=== PATIENT | female | born 2000 | race Caucasian/White ===

== ENCOUNTER 2019-11-01 08:15 | Outpatient (CLI) | payer OTHER, SELFPAY ==
[2019-11-01 08:52] LABS: Basophils Percent Auto 0.2 % (0.2-1.2); Eosinophils Absolute Auto 0.1 K/mm3 (0-0.3); Hematocrit 38.7 % (37.0-47.0); Immature Granulocyte Absolute 0.06 K/mm3 (0.00-0.031); Immature Granulocyte Percent A 0.7 % (0-0.5); Lymphocytes Absolute Auto 2.17 K/mm3 (0.9-3.2); Lymphocytes Percent Auto 24.2 % (18.3-44.2); Mean Corpuscular Hemoglobin 25.5 pg (26-34); Mean Corpuscular Volume 82.2 fl (80-100); Mean Platelet Volume 10.4 fl (7.4-10.4); Monocytes Absolute Auto 0.5 K/mm3 (0.1-0.6); Monocytes Percent Auto 5.5 % (2.6-8.5); Neutrophils Absolute Auto 6.1 K/mm3 (1.3-6.7); Neutrophils Percent Auto 68.4 % (45.5-73.1); Platelet Count Result 309 k/mm3 (150-375); Red Blood Count 4.71 M/mm3 (4.2-5.4)
[2019-11-01 08:59] LABS: Hemoglobin A1C 6.2 % (<5.7)
[2019-11-01 09:03] LABS: Alanine Aminotransferase 21 U/L (4-35); Albumin Level 3.9 g/dL (3.5-5.1); Alkaline Phosphatase 125 U/L (38-126); Aspartate Amino Transferase 21 U/L (14-36); Bilirubin,Total 0.3 mg/dL (0.2-1.3); Blood Urea Nitrogen 8 mg/dL (7-17); Calcium 9.3 mg/dL (8.4-10.2); Carbon Dioxide 24 mmol/L (22-30); Chloride 107 mmol/L (98-107); Cholesterol 156 mg/dL (0-200); Estimated Glomerular Filt Rate > 60; Glucose 126 mg/dL (65-105); HDL Direct 49 mg/dL; Potassium 3.9 mmol/L (3.4-5.0); Sodium 139 mmol/L (137-145); Triglycerides 198 mg/dL (<150)
[2019-11-01 09:11] LABS: Lithium 0.9 mmol/L (0.6-1.2)
[2019-11-01 09:14] LABS: LDL Cholesterol Direct 78 mg/dL
== END 2019-11-01 08:16 | disposition home or self-care (01) ==
PROVIDERS: PCP Family Medicine
DX: F29 Unspecified psychosis not due to a substance or known physiological condition (principal)
CPT/HCPCS: 36415; 80053; 80061; 80178; 82306; 83036; 85025

== ENCOUNTER 2020-08-10 12:33 | Emergency (ER) | payer OTHER, SELFPAY ==
--- NOTE | ~2020-08-10 | XR_ITS ---
EXAMINATION: XR chest 2V DATE: 08/10/2020 12:56 INDICATION: Chest pain. Shortness of breath. TECHNIQUE: Frontal and lateral views of the chest were obtained. COMPARISON: Chest 2 views 09/18/2005 FINDINGS: The chest demonstrates clear lungs without pneumonia, pleural effusion, or pneumothorax. Th e heart size is normal. IMPRESSION: 1. No acute cardiopulmonary disease. Reviewed, dictated and finalized at location A. [employer]
--- NOTE | 2020-08-10 12:42 | ECG_ITS ---
Measurements Intervals [place] Rate: 82 P: 22 ME: 129 QRS: 49 QRSD: 95 T: 38 QT: 363 QTc: 426 Interpretive Statements SINUS RHYTHM NORMAL ECG Electronically Signed On 08-10-2020 12:52:58 CPAS by Wilbert Verde D.O.
[2020-08-10 12:43] VITALS: BP 129/71; PULSE 87; RESP 20; TEMP 36.6; O2SAT 100
[2020-08-10] MEDS: ASPIRIN 81 MG CHEWABLE TABLET 324 MG PO (13:03)
--- NOTE | 2020-08-10 13:10 | ED.CHESTPAIN ---
HPI - Chest Pain General Chief Complaint: Chest Pain Stated Complaint: severe chest pains since last night Time Seen by Provider: 08/10/20 12:43 Source: patient Mode of arrival: ambulatory Limitations: no limitations History of Present Illness HPI narrative: This is a 19-year-old female that presents the emergency department for chest pain since last night. Reports the pain is sharp and substernal. Has been constant since onset. Associated with shortness of breath. Denies fever, cough, or lower extremity edema. Related Data Allergies Allergy/AdvReac Type Severity Reaction Status Date / Time ziprasidone Allergy Unknown FACIAL TICS Verified 08/10/20 12:48 zolpidem AdvReac Unknown UNKNOWN Verified 08/10/20 12:48 REACTION BENZTROPINE MESYLATE Allergy Unknown MAKES HER Uncoded 08/10/20 12:48 LOOPY Review of Systems Review of Systems: Narrative: CONSTITUTIONAL: Denies fever CARDIOVASCULAR: Reports chest pain. Denies edema. RESPIRATORY: Reports dyspnea. Denies dyspnea PSYCHIATRIC: Reports anxiety All systems reviewed & are unremarkable except as noted in HPI and below [facility] Past Medical History Medical History (Updated 08/10/20 @ 16:30 by Kirstin Kahn PA-C) Anxiety Depression History of diabetes mellitus Surgical History Surgical History (Updated 07/16/19 @ 19:42 by Sabino Juan PA-C) Hx of tympanostomy tubes Social History Social History (Updated 07/16/19 @ 19:43 by Sabino Juan PA-C) Smoking status: Never smoker Gender identity (if verbalized by the patient): Female Exam Narrative: Exam Narrative: GENERAL: Well-appearing, obese, and in no acute distress. HEAD: Normocephalic, atraumatic. EYES: EOMI. ENT: Nares clear, no rhinorrhea or epistaxis. Mucous membranes moist. Oropharynx without tonsillar hypertrophy exudate or other lesions. Bilateral TMs pearly montague non-bulging NECK: Supple. No adenopathy or masses. CHEST: Clear to auscultation. No respiratory distress. No wheezes rales or rhonchi. Tender to palpation over the sternum HEART: Regular rate and rhythm. No murmur heard. Normal peripheral pulses. EXTREMITIES: Normal range of motion. No edema. SKIN: Warm, dry, no rash. NEURO: No focal deficits. Alert and oriented x3. CN II-XII grossly intact PSYCH: Normal mood and affect Course Vital Signs Vital signs: Vital Signs Temperature 97.9 F 08/10/20 12:43 Pulse Rate 87 08/10/20 12:43 Respiratory Rate 20 08/10/20 12:43 Blood Pressure 129/71 08/10/20 12:43 Pulse Oximetry 100 08/10/20 12:43 Temperature 97.9 F 08/10/20 12:43 Pulse Rate 79 08/10/20 14:01 Respiratory Rate 20 08/10/20 12:43 Blood Pressure 116/73 08/10/20 14:01 Pulse Oximetry 100 08/10/20 12:43 MDM - Chest Pain MDM Narrative Medical decision making narrative: Patient presents emergency department for chest pain since last night. Atypical in nature. Patient does have some tenderness to palpation over the chest wall. Also has history of anxiety and symptoms do seem consistent with anxiety. She is afebrile and nontoxic-appearing. Vitals are normal. CBC and metabolic panel without concerning findings. BNP is not elevated. Baseline and 3-hour troponin are negative. D-dimer is negative. EKG is normal. Chest x-ray is without acute findings. Bedside test is negative. Reports improvement in symptoms with IV fluids, Tylenol, Toradol. Patient and family were updated on case findings. She is stable and felt appropriate for further outpatient evaluation. She was given warnings to return to the ER Lab Data Attestation: I reviewed the patient's lab results. Result diagrams: 08/10/20 13:03 08/10/20 13:03 Labs: Lab Results 08/10/20 08/10/20 08/10/20 Range/Units 13:03 13:03 13:03 WBC 9.0 (4.5-10.0) K/mm3 RBC 4.59 (4.2-5.4) M/mm3 Hgb 12.3 (12.0-15.0) g/dL Hct 37.6 (37.0-47.0) % MCV 81.9 (80-100) fl MCH 26.8
[2020-08-10 13:11] LABS: Basophils Percent Auto 0.3 % (0.2-1.2); Eosinophils Absolute Auto 0.1 K/mm3 (0-0.3); Eosinophils Percent Auto 0.7 % (0-4.4); Hematocrit 37.6 % (37.0-47.0); Hemoglobin 12.3 g/dL (12.0-15.0); Immature Granulocyte Absolute 0.03 K/mm3 (0.00-0.031); Immature Granulocyte Percent A 0.3 % (0-0.5); Lymphocytes Absolute Auto 2.39 K/mm3 (0.9-3.2); Lymphocytes Percent Auto 26.4 % (18.3-44.2); Mean Corpuscular HGB Conc 32.7 g/dl (32-36); Mean Corpuscular Hemoglobin 26.8 pg (26-34); Mean Corpuscular Volume 81.9 fl (80-100); Mean Platelet Volume 10.4 fl (7.4-10.4); Monocytes Absolute Auto 0.5 K/mm3 (0.1-0.6); Monocytes Percent Auto 5.2 % (2.6-8.5); Neutrophils Absolute Auto 6.1 K/mm3 (1.3-6.7); Neutrophils Percent Auto 67.1 % (45.5-73.1); Platelet Count Result 282 k/mm3 (150-375); Red Blood Count 4.59 M/mm3 (4.2-5.4); Red Cell Distribution Width 14.1 % (11.5-14.5)
[2020-08-10 13:22] LABS: Partial Thromboplastin Time 32.6 SECONDS (22.3-36.8); Prothrombin Time 13.8 Seconds (11.1-14.7)
[2020-08-10 13:24] LABS: Anion Gap 7 mmol/L (8-16); Blood Urea Nitrogen 14 mg/dL (7-17); Calcium 9.2 mg/dL (8.4-10.2); Carbon Dioxide 21 mmol/L (22-30); Chloride 111 mmol/L (98-107); Estimated CRCL calculation 127 ml/min; Estimated Glomerular Filt Rate > 60; Glucose 118 mg/dL (65-105); Potassium 3.7 mmol/L (3.4-5.0); Sodium 139 mmol/L (137-145)
[2020-08-10] MEDS: FAMOTIDINE 20 MG/2 ML VIAL IV PUSH (13:31)
[2020-08-10] MEDS: KETOROLAC 15 MG/ML VIAL (*BKC) IV PUSH (13:31)
[2020-08-10 13:36] LABS: Troponin I < 0.012 ng/mL (0.000-0.034)
[2020-08-10 13:41] LABS: NT Pro B Type Natriuretic Pept < 11 PG/ML (5-100)
[2020-08-10 13:44] LABS: D Dimer 0.27 ug/mL (<0.48)
[2020-08-10 14:00] VITALS: BP 107/68; BP 117/79; PULSE 71; PULSE 78
[2020-08-10 14:01] VITALS: BP 116/73; PULSE 79
[2020-08-10] MEDS: SODIUM CHLORIDE 0.9% IV 1,000 ML 999 ML IV CONT (14:32)
[2020-08-10 15:00] VITALS: BP 100/71; PULSE 70; RESP 16; O2SAT 100
[2020-08-10 16:21] LABS: Troponin I < 0.012 ng/mL (0.000-0.034)
[2020-08-10 16:35] VITALS: BP 105/66; PULSE 75; RESP 16; O2SAT 100
== END 2020-08-10 16:35 | disposition home or self-care (01) ==
PROVIDERS: Emergency Medicine; Physician Assistant; Emergency Provider Emergency Medicine; PCP Nurse Practitioner Family
DX: R07.89 Other chest pain (principal); E11.9 Type 2 diabetes mellitus without complications
CPT/HCPCS: 36415; 71046; 80048; 81025; 83880; 84484; 85025; 85380; 85610; 85730; 93005; 96361; 96374; 96375; 99284; A9270; J0131; J1885; J7030

== ENCOUNTER 2020-08-10 20:57 | Emergency (ER) | payer OTHER, SELFPAY ==
[2020-08-10 20:51] VITALS: BP 135/99; PULSE 75; RESP 17; TEMP 36.2; O2SAT 100
[2020-08-10 21:20] VITALS: BP 119/78; PULSE 77; RESP 16; O2SAT 98
--- NOTE | 2020-08-10 21:20 | ED.GENADULT ---
HPI - General Adult General Chief complaint: Unspecified Stated complaint: sob with inspiration Time Seen by Provider: 08/10/20 21:05 History of Present Illness HPI narrative: Sharp substernal chest pain since last night. Worse with taking a deep breath. 8/10 in severity. Seen here earlier today and had thorough work-up which was all negative. She was given GI cocktail and toradol, which she says did not change the pain at all. No SOB, fever, chills, cough. Related Data Home Medications Medication Instructions Recorded Confirmed bupropion HCl PO 08/10/20 08/10/20 clozapine mg 08/10/20 lithium carbonate mg PO 08/10/20 lithium carbonate mg PO 08/10/20 metformin mg PO 08/10/20 Allergies Allergy/AdvReac Type Severity Reaction Status Date / Time ziprasidone Allergy Unknown FACIAL TICS Verified 08/10/20 20:58 zolpidem AdvReac Unknown UNKNOWN Verified 08/10/20 20:58 REACTION BENZTROPINE MESYLATE Allergy Unknown MAKES HER Uncoded 08/10/20 20:58 LOOPY Review of Systems Review of Systems: All systems reviewed & are unremarkable except as noted in HPI and below Constitutional: Constitutional: Denies chills and Denies fever(s) Cardiovascular: Cardiovascular: Reports chest pain Respiratory: Respiratory: Denies chest congestion, Denies cough and Reports pain on inspiration Gastrointestinal: Gastrointestinal: Denies abdominal pain and Denies nausea Musculoskeletal: Musculoskeletal: Denies myalgias PMFSH Past Medical History Medical History Anxiety Depression History of diabetes mellitus Surgical History Surgical History Hx of tympanostomy tubes Social History Social History Smoking status: Never smoker Gender identity (if verbalized by the patient): Female Exam Const: General: healthy appearing, no acute distress and alert Orientation/consciousness: patient oriented x3 HENMT: Head: normal to inspection Neck: Neck: normal visual inspection and no lymphadenopathy Chest: Chest palpation & inspection: tenderness costochondral junction Resp: Effort & Inspection: normal respiratory effort Auscultation: clear to auscultation bilaterally, no rales, no rhonchi and no wheezes Cardio: Jugular venous distension: no JVD Rate: regular rate Rhythm: regular rhythm Heart sounds: no murmurs GI: Inspection: non-distended GI Palp: Yes Soft to palpation and No Tenderness to palpation present (GI) Skin: General skin exam: normal color Neuro: General: patient oriented x3 and moves all extremities Speech: normal speech Extrem: General: no edema Psych: Appearance: well kempt Affect: Anxious affect present Course Vital Signs Vital signs: Vital Signs Temperature 36.2 C L 08/10/20 20:51 Pulse Rate 75 08/10/20 20:51 Respiratory Rate 17 08/10/20 20:51 Blood Pressure 135/99 H 08/10/20 20:51 Pulse Oximetry 100 08/10/20 20:51 Temperature 36.2 C L 08/10/20 20:51 Pulse Rate 79 08/10/20 22:45 Respiratory Rate 14 08/10/20 22:45 Blood Pressure 106/73 08/10/20 22:45 Pulse Oximetry 98 08/10/20 22:45 Medical Decision Making MDM Narrative Medical decision making narrative: Entire work-up from earlier today was negative, and I do not believe that there would be any benefit to repeating. Vitals normal. Exam benign. She appears very axious. I will try ativan to see if she responds. Medical Records Medical records reviewed: Yes I reviewed the patient's medical records. Vital Signs Vital Signs: Vital Signs Temperature 36.2 C L 08/10/20 20:51 Pulse Rate 75 08/10/20 20:51 Respiratory Rate 17 08/10/20 20:51 Blood Pressure 135/99 H 08/10/20 20:51 Pulse Oximetry 100 08/10/20 20:51 Temperature 36.2 C L 08/10/20 20:51 Pulse Rate 79 08/10/20 22:45 Respiratory Rate 14 08/10/20 22:
[2020-08-10] MEDS: LORazepam (*CRX) 1 MG TABLET PO (21:37)
[2020-08-10 22:45] VITALS: BP 106/73; PULSE 79; RESP 14; O2SAT 98
== END 2020-08-10 22:45 | disposition home or self-care (01) ==
PROVIDERS: Emergency Provider Emergency Medicine; PCP Nurse Practitioner Family
DX: R07.89 Other chest pain (principal); F41.9 Anxiety disorder, unspecified; F32.9 Major depressive disorder, single episode, unspecified; E11.9 Type 2 diabetes mellitus without complications; Z79.84 Long term (current) use of oral hypoglycemic drugs
CPT/HCPCS: 99283; A9270

== ENCOUNTER 2020-10-20 17:26 | Emergency (ER) | payer OTHER, SELFPAY ==
[2020-10-20 17:41] VITALS: BP 137/87; PULSE 102; RESP 18; TEMP 36.4; O2SAT 100
--- NOTE | 2020-10-20 17:44 | ED.GENADULT ---
HPI - General Adult General Chief complaint: Back Pain/Injury Stated complaint: back injury Time Seen by Provider: 10/20/20 17:42 Source: patient and RN notes reviewed Mode of arrival: ambulatory Limitations: no limitations History of Present Illness HPI narrative: 20-year-old female presents with complaints of left back pain for 1 day. Shraddha reports she slipped down a ramp (at her home) landed on back and buttocks on 10/19/2020, causing injury to left side of her back and buttock, pain continue throughout the night and today. Excedrin Migraine last 10/19/20 approximately 3 PM with little to no relief. Denies radiating pain, numbness, or tingling. Denies fever. No upper or lower extremity pain or weakness. Exacerbating factors consist of prolong standing and bending. Denies hitting head, loss of consciousness, dizziness, syncopal episodes, or seizure activity. Denies nausea, vomiting, or abdominal pain. Tolerating po intake well. Denies problems with urinating or having a bowel movement, LBM today at 13:00 per patient and normal. No flank pain or hematuria or dysuria. The patient reports she have not been diagnosed with COVID-19. The patient reports she is not waiting for the results of a COVID-19 lab test. The patient reports she do not have chills, weakness, or fatigue. The patient reports she do not have a new or worsening cough or shortness of breath. Denies chest pain. The patient reports she do not have any rhinorrhea, congestion, sore throat, loss of taste or smell, or diarrhea. Denies recent traveling. Denies concerns for COVID-19 or exposures been home with limited outdoor exposure except for essential household needs, work, and return home. At this time, patient is not suspected of having COVID-19. Some parts of this dictation were generated by voice recognition software and may contain typographical and/or grammatical inaccuracies. Related Data Home Medications Medication Instructions Recorded Confirmed clozapine mg 08/10/20 lithium carbonate mg PO 08/10/20 lithium carbonate mg PO 08/10/20 metformin mg PO 08/10/20 Allergies Allergy/AdvReac Type Severity Reaction Status Date / Time ziprasidone Allergy Unknown FACIAL TICS Verified 08/10/20 20:58 zolpidem AdvReac Unknown UNKNOWN Verified 08/10/20 20:58 REACTION BENZTROPINE MESYLATE Allergy Unknown MAKES HER Uncoded 08/10/20 20:58 LOOPY Review of Systems Review of Systems: Narrative: CONSTITUTIONAL: Denies fever, chills, sweats. EYES: Denies visual changes, redness, discharge. ENT: Denies rhinorrhea, congestion, sore throat, otalgia. CARDIOVASCULAR: Denies chest pain, palpitations, edema. RESPIRATORY: Denies dyspnea, wheezing, cough. GASTROINTESTINAL: Denies abdominal pain, nausea, vomiting, diarrhea. GENITOURINARY: Denies dysuria, hematuria, abnormal discharge. SKIN: Denies rash or itching. MUSCULOSKELETAL: Complains of left back pain. Denies joint pain or myalgia. NEUROLOGIC: Denies numbness or focal weakness. PSYCHIATRIC: Denies anxiety or depression. All systems reviewed & are unremarkable except as noted in HPI and below. [facility] Past Medical History Medical History (Updated 10/20/20 @ 18:09 by JENNY Hurst) ADHD (attention deficit hyperactivity disorder) Anxiety Depression History of diabetes mellitus Psychiatric disorder Surgical History Surgical History (Updated 10/20/20 @ 18:07 by JENNY Hurst) History of adenoidectomy History of tonsillectomy Hx of tympanostomy tubes Family History Family History (Updated 10/20/20 @ 18:06 by JENNY Hurst) Other Adopted Unknown family medical history Social History Social History (Updated 10/20/20 @ 18:05 by JENNY Hurst) Smoking status: Current every day smoker Tobacco type: e-cigarettes/vaping Second hand tobacco smoke exposure: Yes (grandmother) Additional smoking assessment comments: Shraddha reports smoking cigar
[2020-10-20 18:04] VITALS: PULSE 92
== END 2020-10-20 18:04 | disposition home or self-care (01) ==
PROVIDERS: Emergency Provider Nurse Practitioner Family; PCP Nurse Practitioner Family
DX: S33.5XXA Sprain of ligaments of lumbar spine, initial encounter (principal); W10.2XXA Fall (on)(from) incline, initial encounter; F17.200 Nicotine dependence, unspecified, uncomplicated; F41.9 Anxiety disorder, unspecified; F32.9 Major depressive disorder, single episode, unspecified
CPT/HCPCS: 99213; G0463

== ENCOUNTER 2021-01-01 11:50 | Outpatient (CLI) | payer OTHER, SELFPAY ==
--- NOTE | ~2021-01-01 | US_ITS ---
EXAMINATION: US pelvic complete DATE: 01/01/2021 15:36 INDICATION: Polycystic ovary disease Comparison:No prior studies for comparison. TECHNIQUE: Multiple transabdominal sonographic images of the pelvis performed. Patient refused transv aginal examination. FINDINGS: The uterus measures 8.9 x 3 x 4.8 cm. The endometrial complex measures 3 mm. The right ovary measures 2.9 x 1.4 x 1.9 cm and the left ovary measures 3.4 x 2.4 x 2.9 cm. There is a 2.3 cm left ovarian cyst.. Normal doppler signal in both ovaries. There is no free fluid in the pelvis. There are no abnormal masses seen on either side. IMPRESSION: 1. Left ovarian cyst measuring 2.3 cm. Reviewed, dictated and finalized at location B.
== END 2021-01-01 11:51 | disposition home or self-care (01) ==
PROVIDERS: PCP Nurse Practitioner Family; Visit Provider Family Medicine
DX: E28.2 Polycystic ovarian syndrome (principal)
CPT/HCPCS: 76856

== ENCOUNTER → 2021-04-27 02:35 | Outpatient (CLI) | payer OTHER, SELFPAY ==
[2021-04-27 20:12] LABS: SARS-CoV-2 RNA PCR Negative
== END ==
PROVIDERS: PCP Family Medicine; Visit Provider Family Medicine
DX: R50.9 Fever, unspecified (principal); Z20.822 Contact with and (suspected) exposure to COVID-19
CPT/HCPCS: C9803; U0003; U0005

== ENCOUNTER 2021-07-30 09:05 | Emergency (ER) | payer OTHER, SELFPAY ==
[2021-07-30 09:09] VITALS: BP 142/84; PULSE 96; RESP 22; O2SAT 98
--- NOTE | 2021-07-30 09:30 | PC.NURSE ---
Pt tells this nurse that she told her friend the other day that she wanted to jump off of a bridge and told me that she has had past attempt of suicide, states she took a bottle of pills. I asked the patient if she is having more thoughts of suicide because she has been off of her medications. she states yes but i still have thoughts when i am on my medications
--- NOTE | 2021-07-30 09:52 | PC.NURSE ---
Pt told that she will be under suicide watch since she scored high risk on the columbia scale. Pt becomes panicked and states Im not suicidal now, i was the other day, im not now. This RN explained that she scored high risk on the scale and we have to have her evaluated because of that. Pt asks if she can call her mom before I took her phone. Pt calls mom and explains what is going on. This RN can hear mother on the phone telling patient that we can't hold her here and that she needs to just leave. I tell her that she can't leave at this time. Mother asks to talk to me. Pt mother on the phone tells me You can't hold her against her will, shes not suicidal, you can safety plan her out i stated thats she scored high risk and that we have to keep her until she is evaluated. She states I know how the scale works, my does the scales so i understand but my daughter shouldn't have came there alone. she is mentally retarded, and is not all there, shes not suicidal. I stated that pt will be medically cleared and that she will be evaluated by crisis and they along with the doctor will determine the next step. She states well my is the one that will be evaluating her, shes on today so ill be up to get my daughter soon Pt changed into green scrubs, all belongings locked up at this time.
[2021-07-30 10:33] LABS: Basophils Percent Auto 0.2 % (0.2-1.2); Eosinophils Absolute Auto 0.1 K/mm3 (0-0.3); Eosinophils Percent Auto 0.5 % (0-4.4); Hematocrit 39.1 % (37.0-47.0); Hemoglobin 12.8 g/dL (12.0-15.0); Immature Granulocyte Absolute 0.03 K/mm3 (0.00-0.031); Immature Granulocyte Percent A 0.3 % (0-0.5); Lymphocytes Absolute Auto 1.74 K/mm3 (0.9-3.2); Lymphocytes Percent Auto 18.9 % (18.3-44.2); Mean Corpuscular HGB Conc 32.7 g/dl (32-36); Mean Corpuscular Hemoglobin 26.6 pg (26-34); Mean Corpuscular Volume 81.3 fl (80-100); Mean Platelet Volume 10.2 fl (7.4-10.4); Monocytes Absolute Auto 0.5 K/mm3 (0.1-0.6); Monocytes Percent Auto 4.9 % (2.6-8.5); Neutrophils Absolute Auto 6.9 K/mm3 (1.3-6.7); Neutrophils Percent Auto 75.2 % (45.5-73.1); Platelet Count Result 304 k/mm3 (150-375); Red Blood Count 4.81 M/mm3 (4.2-5.4); White Blood Count 9.2 K/mm3 (4.5-10.0)
[2021-07-30 10:41] LABS: Amphetamine Screen Urine Negative (Negative); Barbiturate Screen Urine Negative (Negative); Benzodiazepines Screen Urine Negative (Negative); Cannabinoid Screen Urine Negative (Negative); Cocaine Screen Urine Negative (Negative); Methadone Screen Urine Negative (Negative); Opiate Screen Urine Negative (Negative); Phencyclidine Screen Urine Negative (Negative)
[2021-07-30 10:47] LABS: Add Urine Microscopic? YES; Appearance Urine Cloudy (Clear); Bilirubin Urine Negative (Negative); Blood Urine 3+ (Negative); Color Urine Yellow (Yellow); Glucose Urine UA Negative (Negative); Ketones Urine Negative (Negative); Leukocyte Esterase Ur Trace LEU/UL (Negative); Mucus Urine Rare /lpf; Nitrate Urine Negative (Negative); Protein Urine Negative (Negative); Specific Grav Ur 1.008 (1.001-1.035); Squamous Epithelial Cell Urine Moderate /hpf (Few); Urobilinogen Urine Negative mg/dL (<2.0)
[2021-07-30 10:50] LABS: Acetaminophen < 10 ug/mL (10-30); Ethanol < 10 mg/dL (<10); Salicylate 1.5 mg/dL (2-20)
[2021-07-30 10:52] LABS: Alanine Aminotransferase 20 U/L (4-35); Albumin Level 4.3 g/dL (3.5-5.1); Alkaline Phosphatase 127 U/L (38-126); Anion Gap 10 mmol/L (8-16); Aspartate Amino Transferase 25 U/L (14-36); Bilirubin,Total 0.3 mg/dL (0.2-1.3); Blood Urea Nitrogen 9 mg/dL (7-17); Calcium 9.8 mg/dL (8.4-10.2); Carbon Dioxide 21 mmol/L (22-30); Chloride 110 mmol/L (98-107); Estimated Glomerular Filt Rate > 60; Glucose 135 mg/dL (65-110); Potassium 3.7 mmol/L (3.4-5.0); Sodium 141 mmol/L (137-145)
[2021-07-30 11:01] LABS: Lithium 1.5 mmol/L (0.6-1.2)
--- NOTE | 2021-07-30 11:16 | ED.GENADULT ---
HPI - General Adult General Chief complaint: Psychiatric Symptoms Stated complaint: blurred vision, withdrawals Time Seen by Provider: 07/30/21 09:23 History of Present Illness HPI narrative: Patient is a 20-year-old female with history of psychosis, depression, anxiety presented with chief complaint of withdrawal symptoms. Patient reports that she has been out of her closet pain for the past 5 days and is having withdrawal symptoms. She reports the symptoms include shaking. She denies any nausea and vomiting, diaphoresis.patient psychiatrist is Dr. kayla kam. Patient states that she is supposed to have her lab work done prior to medication refill so since she did not have the blood work done the pharmacy did not give the refill. Patient states that she has still been taking her lithium twice a day as directed. Patient denies any suicidal or homicidal ideation.She denies any delusions or hallucinations. Related Data Home Medications Medication Instructions Recorded Confirmed clozapine 100 mg 08/10/20 lithium carbonate mg PO 08/10/20 lithium carbonate mg PO 08/10/20 metformin mg PO 08/10/20 Allergies Allergy/AdvReac Type Severity Reaction Status Date / Time ziprasidone Allergy Unknown FACIAL TICS Verified 07/30/21 09:21 zolpidem AdvReac Unknown UNKNOWN Verified 07/30/21 09:21 REACTION BENZTROPINE MESYLATE Allergy Unknown MAKES HER Uncoded 07/30/21 09:21 LOOPY Review of Systems Review of Systems: CONSTITUTIONAL: Denies fever, chills, or sweats. EYES: Denies visual changes, redness, or discharge. ENT: Denies rhinorrhea, congestion, sore throat, or otalgia. CARDIOVASCULAR: Denies chest pain, palpitations, or edema. RESPIRATORY: Denies cough or dyspnea. GASTROINTESTINAL: Denies abdominal pain, nausea, vomiting, or diarrhea. GENITOURINARY: Denies dysuria or hematuria. SKIN: Denies rash or itching. MUSCULOSKELETAL: Denies back pain, joint pain, or myalgia. NEUROLOGIC: Denies headache, numbness, dizziness, or weakness. PSYCHIATRIC: Reports anxiety or depression. [facility] Past Medical History Medical History (Updated 07/30/21 @ 15:25 by Danita Hussein PA-C) ADHD (attention deficit hyperactivity disorder) Anxiety Depression History of diabetes mellitus Psychiatric disorder Surgical History Surgical History (Updated 10/20/20 @ 18:07 by JENNY Hurst) History of adenoidectomy History of tonsillectomy Hx of tympanostomy tubes Family History Family History (Updated 10/20/20 @ 18:06 by JENNY Hurst) Other Adopted Unknown family medical history Social History Social History (Updated 10/20/20 @ 18:05 by JENNY Hurst) Smoking status: Current every day smoker Tobacco type: e-cigarettes/vaping Second hand tobacco smoke exposure: Yes (grandmother) Additional smoking assessment comments: Shraddha reports smoking cigarettes intermittently prior to Alcohol intake: former Alcohol use details: Had alcohol once when she was 19 Substance use: never Substance use type: does not use Gender identity (if verbalized by the patient): Female Exam Narrative: GENERAL: Well-appearing, well-nourished, and in no acute distress. Not diaphoretic. No tremors. Patient has no gagging or vomiting. HEAD: Normocephalic, atraumatic. CHEST: Clear to auscultation. No respiratory distress. No tachypnea. EXTREMITIES: Normal range of motion. No edema. SKIN: Warm, dry, no rash. NEURO: No focal deficits. Alert and oriented x3. Smiling and talking without any signs of discomfort or distress. PSYCH: Normal mood and affect. Course Vital Signs Vital signs: Vital Signs Pulse Rate 96 07/30/21 09:09 Respiratory Rate 22 H 07/30/21 09:09 Blood Pressure 142/84 H 07/30/21 09:09 Pulse Oximetry 98 07/30/21 09:09 Pulse Rate 94 07/30/21 13:54 Respiratory Rate 20 07/30/21 13:54 Blood Pressure 138/86 07/30/21 13:54 Pulse Oximetry 99 1
[2021-07-30 11:20] LABS: EDCOVIDSCREEN Negative (Negative)
[2021-07-30 13:54] VITALS: BP 138/86; PULSE 94; RESP 20; O2SAT 99
[2021-08-03 12:58] LABS: Clozapine 139 mcg/L; Norclozapine 193 mcg/L (25-400)
== END 2021-07-30 15:59 | disposition home or self-care (01) ==
PROVIDERS: Physician Assistant; Emergency Provider Emergency Medicine; PCP Family Medicine
DX: F32.A Depression, unspecified (principal); F41.9 Anxiety disorder, unspecified; Z91.14 Patient's other noncompliance with medication regimen; Z20.822 Contact with and (suspected) exposure to COVID-19; F90.9 Attention-deficit hyperactivity disorder, unspecified type; E11.9 Type 2 diabetes mellitus without complications; Z79.84 Long term (current) use of oral hypoglycemic drugs; F17.290 Nicotine dependence, other tobacco product, uncomplicated
CPT/HCPCS: 36415; 80053; 80159; 80178; 80307; 81001; 81025; 84443; 85025; 87086; 87088; 87426; 99283; C9803

== ENCOUNTER 2021-09-14 08:31 | Outpatient (RCR) | payer OTHER, SELFPAY ==
[2021-07-31 09:07] LABS: Basophils Percent Auto 0.2 % (0.2-1.2); Eosinophils Absolute Auto 0.1 K/mm3 (0-0.3); Eosinophils Percent Auto 1.1 % (0-4.4); Hematocrit 37.8 % (37.0-47.0); Hemoglobin 12.3 g/dL (12.0-15.0); Immature Granulocyte Absolute 0.03 K/mm3 (0.00-0.031); Immature Granulocyte Percent A 0.4 % (0-0.5); Lymphocytes Absolute Auto 2.18 K/mm3 (0.9-3.2); Mean Corpuscular HGB Conc 32.5 g/dl (32-36); Mean Corpuscular Hemoglobin 26.5 pg (26-34); Mean Corpuscular Volume 81.5 fl (80-100); Mean Platelet Volume 9.8 fl (7.4-10.4); Monocytes Absolute Auto 0.5 K/mm3 (0.1-0.6); Monocytes Percent Auto 5.7 % (2.6-8.5); Neutrophils Absolute Auto 5.6 K/mm3 (1.3-6.7); Neutrophils Percent Auto 66.6 % (45.5-73.1); Platelet Count Result 290 k/mm3 (150-375); Red Blood Count 4.64 M/mm3 (4.2-5.4); White Blood Count 8.4 K/mm3 (4.5-10.0)
[2021-08-27 08:45] LABS: Basophils Percent Auto 0.2 % (0.2-1.2); Eosinophils Absolute Auto 0.1 K/mm3 (0-0.3); Eosinophils Percent Auto 0.7 % (0-4.4); Hematocrit 38.6 % (37.0-47.0); Hemoglobin 12.2 g/dL (12.0-15.0); Immature Granulocyte Absolute 0.04 K/mm3 (0.00-0.031); Immature Granulocyte Percent A 0.3 % (0-0.5); Lymphocytes Absolute Auto 2.67 K/mm3 (0.9-3.2); Lymphocytes Percent Auto 21.5 % (18.3-44.2); Mean Corpuscular HGB Conc 31.6 g/dl (32-36); Mean Corpuscular Hemoglobin 26.2 pg (26-34); Mean Corpuscular Volume 82.8 fl (80-100); Monocytes Absolute Auto 0.9 K/mm3 (0.1-0.6); Neutrophils Absolute Auto 8.7 K/mm3 (1.3-6.7); Neutrophils Percent Auto 70.3 % (45.5-73.1); Platelet Count Result 287 k/mm3 (150-375); Red Blood Count 4.66 M/mm3 (4.2-5.4); Red Cell Distribution Width 16.2 % (11.5-14.5); White Blood Count 12.4 K/mm3 (4.5-10.0)
[2021-09-14 09:07] LABS: Basophils Percent Auto 0.3 % (0.2-1.2); Eosinophils Absolute Auto 0.1 K/mm3 (0-0.3); Eosinophils Percent Auto 0.6 % (0-4.4); Hematocrit 36.9 % (37.0-47.0); Hemoglobin 11.8 g/dL (12.0-15.0); Immature Granulocyte Absolute 0.04 K/mm3 (0.00-0.031); Immature Granulocyte Percent A 0.4 % (0-0.5); Lymphocytes Absolute Auto 3.27 K/mm3 (0.9-3.2); Lymphocytes Percent Auto 33.7 % (18.3-44.2); Mean Corpuscular Hemoglobin 26.4 pg (26-34); Mean Corpuscular Volume 82.6 fl (80-100); Mean Platelet Volume 10.2 fl (7.4-10.4); Monocytes Absolute Auto 0.7 K/mm3 (0.1-0.6); Monocytes Percent Auto 7.6 % (2.6-8.5); Neutrophils Absolute Auto 5.6 K/mm3 (1.3-6.7); Neutrophils Percent Auto 57.4 % (45.5-73.1); Platelet Count Result 312 k/mm3 (150-375); Red Blood Count 4.47 M/mm3 (4.2-5.4); Red Cell Distribution Width 15.9 % (11.5-14.5); White Blood Count 9.7 K/mm3 (4.5-10.0)
== END 2021-10-29 23:59 | disposition home or self-care (01) ==
LOC: ANHLAB 08:31
PROVIDERS: PCP Family Medicine
DX: F29 Unspecified psychosis not due to a substance or known physiological condition (principal)
CPT/HCPCS: 36415; 85025

== ENCOUNTER 2021-10-13 13:10 | Emergency (ER) | payer OTHER, SELFPAY ==
[2021-10-13 13:50] VITALS: BP 126/82; PULSE 73; RESP 16; TEMP 36.8; O2SAT 100
--- NOTE | 2021-10-13 14:15 | ED.PSYCH ---
HPI - Psych General Chief Complaint: Psychiatric Symptoms <Rufino Cuellar MD - Last Filed: 10/13/21 22:35> Stated Complaint: requests psych eval <Rufino Cuellar MD - Last Filed: 10/13/21 22:35> Time Seen by Provider: 10/13/21 13:24 <Rufino Cuellar MD - Last Filed: 10/13/21 22:35> Source: patient <Rufino Cuellar MD - Last Filed: 10/13/21 22:35> Mode of arrival: ambulatory <Rufino Cuellar MD - Last Filed: 10/13/21 22:35> Limitations: no limitations <Rufino Cuellar MD - Last Filed: 10/13/21 22:35> History of Present Illness HPI Narrative: Patient is a 21-year-old female brought in by mother due to increasing erratic behavior, medication noncompliance x1 month but worse this past 2 weeks. Mother states that the patient has a history of schizoaffective disorder, and has been off her clozapine for the past 2 months. Mother describes erratic behavior as not bathing for the past month, doing drugs dope and drinking , going to the police station making false accusations multiple times, the police already know her and her mental health problems, and today the retractor falls accusations unless she gets mental health . Mother called letty and was advised to go to the emergency room for medical clearance. Patient denies any suicidal homicidal thoughts. Patient denies any thoughts of hurting herself or anyone. Patient denies any auditory or visual hallucinations. <Rufino Cuellar MD - Last Filed: 10/13/21 22:35> Related Data Home Medications: Home Medications Medication Instructions Recorded Confirmed clozapine 100 mg 08/10/20 lithium carbonate mg PO 08/10/20 lithium carbonate mg PO 08/10/20 metformin mg PO 08/10/20 lithium carbonate mg PO 10/13/21 quetiapine 10/13/21 topiramate 10/13/21 <Rufino Cuellar MD - Last Filed: 10/13/21 22:35> Allergies/Adverse Reactions: Allergies Allergy/AdvReac Type Severity Reaction Status Date / Time ziprasidone Allergy Unknown FACIAL TICS Verified 07/30/21 09:21 zolpidem AdvReac Unknown UNKNOWN Verified 07/30/21 09:21 REACTION BENZTROPINE MESYLATE Allergy Unknown MAKES HER Uncoded 07/30/21 09:21 LOOPY <Rufino Cuellar MD - Last Filed: 10/13/21 22:35> Review of Systems Review of Systems: All systems reviewed & are unremarkable except as noted in HPI and below <Rufino Cuellar MD - Last Filed: 10/13/21 22:35> Constitutional: Constitutional: Denies body ache(s), Denies chills, Denies excessive sweating, Denies fatigue, Denies fever(s), Denies headache(s), Denies lethargy, Denies malaise, Denies weakness and Denies weight loss <Rufino Cuellar MD - Last Filed: 10/13/21 22:35> Eyes: Eyes: Denies blurry vision, Denies change in vision and Denies loss of vision <Rufino Cuellar MD - Last Filed: 10/13/21 22:35> ENT: Denies dizziness, Denies ear discharge, Denies headache(s), Denies lip swelling, Denies epistaxis, Denies nasal congestion, Denies neck pain, Denies throat swelling and Denies tongue swelling <Rufino Cuellar MD - Last Filed: 10/13/21 22:35> Cardiovascular: Cardiovascular: Denies chest pain, Denies chest pain at rest, Denies chest pain with activity, Denies diaphoresis, Denies rapid heart rate, Denies edema, Denies irregular heart rhythm, Denies lightheadedness, Denies palpitations, Denies dyspnea and Denies dyspnea on exertion <Rufino Cuellar MD - Last Filed: 10/13/21 22:35> Respiratory: Respiratory: Denies chest congestion, Denies cough, Denies hemoptysis, Denies dyspnea and Denies dyspnea on exertion <Rufino Cuellar MD - Last Filed: 10/13/21 22:35> Gastrointestinal: Gastrointestinal: Denies abdominal pain, Denies melena, Denies hematochezia, Denies diarrhea, Denies nausea, Denies vomiting and Denies hematemesis <Rufino Cuellar MD - Last Filed: 10/13/21 22:35> Musculoskeletal: Musculoskeletal: Denies abnormal gait, Denies deformity, Denies joint swell
[2021-10-13 14:19] LABS: Basophils Percent Auto 0.3 % (0.2-1.2); Eosinophils Absolute Auto 0.1 K/mm3 (0-0.3); Eosinophils Percent Auto 0.8 % (0-4.4); Hematocrit 43.5 % (37.0-47.0); Hemoglobin 13.9 g/dL (12.0-15.0); Immature Granulocyte Absolute 0.02 K/mm3 (0.00-0.031); Immature Granulocyte Percent A 0.2 % (0-0.5); Lymphocytes Absolute Auto 2.35 K/mm3 (0.9-3.2); Lymphocytes Percent Auto 22.3 % (18.3-44.2); Mean Corpuscular Hemoglobin 26.9 pg (26-34); Mean Corpuscular Volume 84.1 fl (80-100); Mean Platelet Volume 10.4 fl (7.4-10.4); Monocytes Absolute Auto 0.7 K/mm3 (0.1-0.6); Monocytes Percent Auto 6.6 % (2.6-8.5); Neutrophils Absolute Auto 7.4 K/mm3 (1.3-6.7); Neutrophils Percent Auto 69.8 % (45.5-73.1); Platelet Count Result 351 k/mm3 (150-375); Red Blood Count 5.17 M/mm3 (4.2-5.4); Red Cell Distribution Width 15.8 % (11.5-14.5); White Blood Count 10.6 K/mm3 (4.5-10.0)
[2021-10-13 14:23] LABS: Add Urine Microscopic? YES; Appearance Urine Clear (Clear); Bilirubin Urine Negative (Negative); Blood Urine Negative (Negative); Color Urine Yellow (Yellow); Glucose Urine UA Negative (Negative); Ketones Urine Negative (Negative); Leukocyte Esterase Ur Negative LEU/UL (Negative); Mucus Urine Rare /lpf; Nitrate Urine Negative (Negative); Protein Urine Negative (Negative); RBC Urine 0-2 /hpf (0-2); Specific Grav Ur 1.019 (1.001-1.035); Urobilinogen Urine Negative mg/dL (<2.0); WBC Urine 0-3 /hpf
[2021-10-13 14:29] LABS: Acetaminophen < 10 ug/mL (10-30); Alanine Aminotransferase 23 U/L (4-35); Albumin Level 4.6 g/dL (3.5-5.1); Alkaline Phosphatase 113 U/L (38-126); Anion Gap 10 mmol/L (8-16); Aspartate Amino Transferase 25 U/L (14-36); Bilirubin,Total 0.3 mg/dL (0.2-1.3); Blood Urea Nitrogen 13 mg/dL (7-17); Calcium 9.5 mg/dL (8.4-10.2); Carbon Dioxide 19 mmol/L (22-30); Chloride 109 mmol/L (98-107); Estimated Glomerular Filt Rate > 60; Ethanol < 10 mg/dL (<10); Glucose 126 mg/dL (65-110); Salicylate < 1.0 mg/dL (2-20); Sodium 138 mmol/L (137-145)
[2021-10-13 14:40] LABS: Amphetamine Screen Urine Negative (Negative); Barbiturate Screen Urine Negative (Negative); Benzodiazepines Screen Urine Negative (Negative); Cannabinoid Screen Urine Positive (Negative); Cocaine Screen Urine Negative (Negative); Methadone Screen Urine Negative (Negative); Opiate Screen Urine Negative (Negative); Phencyclidine Screen Urine Negative (Negative)
[2021-10-13 14:45] LABS: Beta HCG Quantitative < 2.39 mIU/ML
[2021-10-13 14:49] LABS: Lithium < 0.2 mmol/L (0.6-1.2)
[2021-10-13 18:30] VITALS: BP 121/99; PULSE 75; RESP 16; O2SAT 100
--- NOTE | 2021-10-13 19:01 | PC.NURSE ---
GELY FROM [facility] HAS COMPLETED EVAL OF PT AND IS GOING TO INITIATE A PETITION/INVOLUNTARY ADMISSION. PT WAS MOVED TO ROOM 15. PLACED IN GREEN SCRUBS, CLOTHING BAGGED, LABELED AND PUT IN STORAGE AREA OUTSIDE ROOM 4/5. MOTHER ZEE IS REMAINING AT BEDSIDE. PT IS INTERMITTENTLY TEARFUL BUT COOPERATIVE.
[2021-10-13 19:21] LABS: SARS-CoV-2 RNA PCR Negative
--- NOTE | 2021-10-13 20:37 | PC.NURSE ---
Pt's mother left. Requested to take pt's clothing with her, which pt declined to allow when this RN requested. Informed pt's mother that as an adult, pt had right to have belongings secured while in ED. Pt's mother left dept. at this time.
--- NOTE | 2021-10-13 21:02 | PC.NURSE ---
no beds at the [facility] call to [facility], will call back
--- NOTE | 2021-10-13 22:39 | PC.NURSE ---
pt accepted by Dr Rodriguez awaiting bed at [facility]
--- NOTE | 2021-10-13 23:00 | PC.NURSE ---
report received from SAVANNA Evans. pt sleeping comfortably in bed at this time.
[2021-10-14 00:03] VITALS: BP 112/72; PULSE 74; RESP 17; TEMP 36.8; O2SAT 96
--- NOTE | 2021-10-14 01:00 | PC.NURSE ---
pt sleeping at this time.
[2021-10-14 02:41] VITALS: BP 104/67; PULSE 65; RESP 18; TEMP 37; O2SAT 99
== END 2021-10-14 02:45 ==
PROVIDERS: Emergency Provider Emergency Medicine; PCP Family Medicine
DX: F25.0 Schizoaffective disorder, bipolar type (principal); Z20.822 Contact with and (suspected) exposure to COVID-19; F90.9 Attention-deficit hyperactivity disorder, unspecified type; F41.9 Anxiety disorder, unspecified; E11.9 Type 2 diabetes mellitus without complications; F17.290 Nicotine dependence, other tobacco product, uncomplicated; Z79.84 Long term (current) use of oral hypoglycemic drugs; T42.4X6A Underdosing of benzodiazepines, initial encounter; Z91.128 Patient's intentional underdosing of medication regimen for other reason
CPT/HCPCS: 36415; 80053; 80178; 80307; 81001; 84702; 85025; 99285; C9803; U0003; U0005

== ENCOUNTER 2021-12-20 22:39 | Emergency (ER) | payer OTHER, SELFPAY ==
[2021-12-20 22:40] VITALS: BP 125/75; PULSE 100; RESP 18; TEMP 36.5; O2SAT 100
[2021-12-20] MEDS: TETANUS/DIPHTHERIA TOXOIDS ADSORB 0.5 ML VIAL (*BKC) IM (23:57)
--- NOTE | 2021-12-21 00:01 | ED.WOUNDLAC ---
HPI - Wound/Laceration General Chief Complaint: Wound/Laceration Stated Complaint: stitches Time Seen by Provider: 12/20/21 23:39 Source: patient Mode of arrival: ambulatory Limitations: no limitations History of Present Illness HPI narrative: 21-year-old female presents emergency room today she was at home trying to cut something with a knife and she inadvertently cut her left index finger. Happened just prior to presentation emergency room. She is up-to-date on her tetanus status. She is right-hand dominant. Had minimal bleeding prior to come to the emergency room. He is able to move her finger fully without any difficulty. Related Data Home Medications Medication Instructions Recorded Confirmed metformin mg PO 08/10/20 buspirone mg 12/20/21 clozapine mg 12/20/21 lithium carbonate mg PO 12/20/21 topiramate 12/20/21 Allergies Allergy/AdvReac Type Severity Reaction Status Date / Time ziprasidone Allergy Unknown FACIAL TICS Verified 12/20/21 23:16 zolpidem AdvReac Unknown UNKNOWN Verified 12/20/21 23:16 REACTION BENZTROPINE MESYLATE Allergy Unknown MAKES HER Uncoded 07/30/21 09:21 LOOPY Review of Systems Review of Systems: CONSTITUTIONAL: Denies fever, chills, or sweats. EYES: Denies visual changes, redness, or discharge. ENT: Denies rhinorrhea, congestion, sore throat, or otalgia. CARDIOVASCULAR: Denies chest pain, palpitations, or edema. RESPIRATORY: Denies cough or dyspnea. GASTROINTESTINAL: Denies abdominal pain, nausea, vomiting, or diarrhea. GENITOURINARY: Denies dysuria or hematuria. SKIN: Denies rash or itching. MUSCULOSKELETAL: Denies back pain, joint pain, or myalgia. Laceration to left index finger NEUROLOGIC: Denies headache, numbness, or weakness. PSYCHIATRIC: Denies anxiety or depression. [facility] Past Medical History Medical History ADHD (attention deficit hyperactivity disorder) Anxiety Depression History of diabetes mellitus Psychiatric disorder Surgical History Surgical History History of adenoidectomy History of tonsillectomy Hx of tympanostomy tubes Family History Family History Other Adopted Unknown family medical history Social History Social History Smoking status: Current every day smoker Tobacco type: e-cigarettes/vaping Second hand tobacco smoke exposure: Yes (grandmother) Additional smoking assessment comments: Shraddha reports smoking cigarettes intermittently prior to vaping-2020 Alcohol intake: former Alcohol use details: Had alcohol once when she was 19 Substance use: never Substance use type: marijuana Gender identity (if verbalized by the patient): Female Exam Narrative: APPEARANCE: Well appearing, no pain or distress, well-nourished. Head normocephalic and atraumatic. EYES: PERRLA/EOMI, conjunctivae very clear. NOSE: Normal with no drainage EARS:TMS clear Norman Shukla, with good light reflex. THROAT: Pharynx clear, no exudate. NECK: Supple. No adenopathy, no masses. RESPIRATORY: Airway patent, respirations nonlabored. Clear to auscultation bilaterally, no rales, rhonchi, wheezing. CARDIOVASCULAR: Regular rate and rhythm without murmurs, rubs, or gallops. ABDOMINAL: Soft, nontender, nondistended, no hepatosplenomegaly Musculoskeletal: Moves all extremities. Strength/ROM intact, No edema, No calf tenderness. 1.5 cm laceration noted to the left index finger over the proximal phalanx on the lateral aspect. Full range of motion. Motor and sensory intact distally NEURO: Alert. Cranial nerves II through XII intact. Normal gait. Good coordination. Nonfocal examination. SKIN:: Warm, dry. Normal Color PSYCHIATRIC: Normal affect/mood, normal interaction Course Vital Signs Vital signs: Vital Signs Temperature 97.7 F
== END 2021-12-21 00:05 | disposition home or self-care (01) ==
PROVIDERS: Emergency Provider Emergency Medicine; PCP Nurse Practitioner Family
DX: S61.211A Laceration without foreign body of left index finger without damage to nail, initial encounter (principal); Z23 Encounter for immunization; E11.9 Type 2 diabetes mellitus without complications; F90.9 Attention-deficit hyperactivity disorder, unspecified type; F41.9 Anxiety disorder, unspecified; F32.A Depression, unspecified; F17.290 Nicotine dependence, other tobacco product, uncomplicated; Z79.84 Long term (current) use of oral hypoglycemic drugs; W26.0XXA Contact with knife, initial encounter
CPT/HCPCS: 12001; 90471; 90714; 99282

== ENCOUNTER 2022-01-22 08:36 | Outpatient (RCR) | payer OTHER, SELFPAY ==
[2021-11-01 10:25] LABS: Basophils Percent Auto 0.4 % (0.2-1.2); Eosinophils Absolute Auto 0.1 K/mm3 (0-0.3); Eosinophils Percent Auto 1.2 % (0-4.4); Hematocrit 38.5 % (37.0-47.0); Hemoglobin 12.6 g/dL (12.0-15.0); Immature Granulocyte Absolute 0.08 K/mm3 (0.00-0.031); Immature Granulocyte Percent A 0.8 % (0-0.5); Lymphocytes Absolute Auto 2.26 K/mm3 (0.9-3.2); Lymphocytes Percent Auto 21.7 % (18.3-44.2); Mean Corpuscular HGB Conc 32.7 g/dl (32-36); Mean Corpuscular Hemoglobin 26.5 pg (26-34); Mean Corpuscular Volume 80.9 fl (80-100); Mean Platelet Volume 9.8 fl (7.4-10.4); Monocytes Absolute Auto 0.4 K/mm3 (0.1-0.6); Monocytes Percent Auto 4.1 % (2.6-8.5); Neutrophils Absolute Auto 7.5 K/mm3 (1.3-6.7); Neutrophils Percent Auto 71.8 % (45.5-73.1); Platelet Count Result 352 k/mm3 (150-375); Red Blood Count 4.76 M/mm3 (4.2-5.4); Red Cell Distribution Width 16.3 % (11.5-14.5); White Blood Count 10.4 K/mm3 (4.5-10.0)
[2021-11-01 10:41] LABS: Lithium 0.7 mmol/L (0.6-1.2)
[2021-12-27 09:07] LABS: Basophils Percent Auto 0.3 % (0.2-1.2); Eosinophils Absolute Auto 0.2 K/mm3 (0-0.3); Eosinophils Percent Auto 1.7 % (0-4.4); Hematocrit 40.4 % (37.0-47.0); Hemoglobin 12.8 g/dL (12.0-15.0); Immature Granulocyte Absolute 0.05 K/mm3 (0.00-0.031); Immature Granulocyte Percent A 0.4 % (0-0.5); Lymphocytes Absolute Auto 2.18 K/mm3 (0.9-3.2); Lymphocytes Percent Auto 17.2 % (18.3-44.2); Mean Corpuscular HGB Conc 31.7 g/dl (32-36); Mean Corpuscular Hemoglobin 26.2 pg (26-34); Mean Corpuscular Volume 82.8 fl (80-100); Mean Platelet Volume 9.6 fl (7.4-10.4); Monocytes Absolute Auto 0.6 K/mm3 (0.1-0.6); Monocytes Percent Auto 4.9 % (2.6-8.5); Neutrophils Absolute Auto 9.6 K/mm3 (1.3-6.7); Neutrophils Percent Auto 75.5 % (45.5-73.1); Platelet Count Result 325 k/mm3 (150-375); Red Blood Count 4.88 M/mm3 (4.2-5.4); Red Cell Distribution Width 15.8 % (11.5-14.5); White Blood Count 12.7 K/mm3 (4.5-10.0)
[2022-01-22 09:44] LABS: Basophils Absolute Auto 0.1 K/mm3 (0.0-0.1); Basophils Percent Auto 0.5 % (0.2-1.2); Eosinophils Absolute Auto 0.1 K/mm3 (0-0.3); Eosinophils Percent Auto 1.2 % (0-4.4); Hematocrit 37.6 % (37.0-47.0); Hemoglobin 11.7 g/dL (12.0-15.0); Immature Granulocyte Absolute 0.03 K/mm3 (0.00-0.031); Immature Granulocyte Percent A 0.3 % (0-0.5); Lymphocytes Absolute Auto 2.22 K/mm3 (0.9-3.2); Lymphocytes Percent Auto 22.7 % (18.3-44.2); Mean Corpuscular HGB Conc 31.1 g/dl (32-36); Mean Corpuscular Hemoglobin 26.4 pg (26-34); Mean Corpuscular Volume 84.7 fl (80-100); Monocytes Absolute Auto 0.6 K/mm3 (0.1-0.6); Monocytes Percent Auto 5.6 % (2.6-8.5); Neutrophils Absolute Auto 6.8 K/mm3 (1.3-6.7); Neutrophils Percent Auto 69.7 % (45.5-73.1); Platelet Count Result 288 k/mm3 (150-375); Red Blood Count 4.44 M/mm3 (4.2-5.4); Red Cell Distribution Width 16.4 % (11.5-14.5); White Blood Count 9.8 K/mm3 (4.5-10.0)
== END 2022-01-30 23:59 | disposition home or self-care (01) ==
LOC: ANHLAB 08:36
PROVIDERS: PCP Nurse Practitioner Family
DX: F29 Unspecified psychosis not due to a substance or known physiological condition (principal)
CPT/HCPCS: 36415; 80178; 85025

== ENCOUNTER 2022-05-01 08:37 | Outpatient (RCR) | payer OTHER, SELFPAY ==
[2022-02-21 09:12] LABS: Basophils Percent Auto 0.4 % (0.2-1.2); Eosinophils Absolute Auto 0.1 K/mm3 (0-0.3); Eosinophils Percent Auto 1.1 % (0-4.4); Hematocrit 39.7 % (37.0-47.0); Hemoglobin 12.5 g/dL (12.0-15.0); Immature Granulocyte Absolute 0.04 K/mm3 (0.00-0.031); Immature Granulocyte Percent A 0.4 % (0-0.5); Lymphocytes Absolute Auto 2.31 K/mm3 (0.9-3.2); Lymphocytes Percent Auto 22.7 % (18.3-44.2); Mean Corpuscular HGB Conc 31.5 g/dl (32-36); Mean Corpuscular Volume 82.7 fl (80-100); Mean Platelet Volume 9.8 fl (7.4-10.4); Monocytes Absolute Auto 0.6 K/mm3 (0.1-0.6); Monocytes Percent Auto 5.5 % (2.6-8.5); Neutrophils Absolute Auto 7.1 K/mm3 (1.3-6.7); Neutrophils Percent Auto 69.9 % (45.5-73.1); Platelet Count Result 311 k/mm3 (150-375); Red Cell Distribution Width 16.2 % (11.5-14.5); White Blood Count 10.2 K/mm3 (4.5-10.0)
[2022-03-25 09:02] LABS: Basophils Percent Auto 0.3 % (0.2-1.2); Eosinophils Absolute Auto 0.2 K/mm3 (0-0.3); Eosinophils Percent Auto 1.7 % (0-4.4); Hematocrit 38.1 % (37.0-47.0); Hemoglobin 12.2 g/dL (12.0-15.0); Immature Granulocyte Absolute 0.07 K/mm3 (0.00-0.031); Immature Granulocyte Percent A 0.5 % (0-0.5); Lymphocytes Absolute Auto 2.59 K/mm3 (0.9-3.2); Lymphocytes Percent Auto 19.6 % (18.3-44.2); Mean Corpuscular Hemoglobin 26.2 pg (26-34); Mean Corpuscular Volume 81.8 fl (80-100); Monocytes Absolute Auto 0.6 K/mm3 (0.1-0.6); Monocytes Percent Auto 4.7 % (2.6-8.5); Neutrophils Absolute Auto 9.7 K/mm3 (1.3-6.7); Neutrophils Percent Auto 73.2 % (45.5-73.1); Platelet Count Result 333 k/mm3 (150-375); Red Blood Count 4.66 M/mm3 (4.2-5.4); Red Cell Distribution Width 15.9 % (11.5-14.5); White Blood Count 13.2 K/mm3 (4.5-10.0)
[2022-05-01 09:15] LABS: Basophils Percent Auto 0.3 % (0.2-1.2); Eosinophils Absolute Auto 0.2 K/mm3 (0-0.3); Eosinophils Percent Auto 1.3 % (0-4.4); Hematocrit 39.9 % (37.0-47.0); Hemoglobin 12.5 g/dL (12.0-15.0); Immature Granulocyte Absolute 0.04 K/mm3 (0.00-0.031); Immature Granulocyte Percent A 0.3 % (0-0.5); Lymphocytes Absolute Auto 2.36 K/mm3 (0.9-3.2); Lymphocytes Percent Auto 19.9 % (18.3-44.2); Mean Corpuscular HGB Conc 31.3 g/dl (32-36); Mean Corpuscular Hemoglobin 26.3 pg (26-34); Mean Corpuscular Volume 83.8 fl (80-100); Mean Platelet Volume 9.7 fl (7.4-10.4); Monocytes Absolute Auto 0.7 K/mm3 (0.1-0.6); Monocytes Percent Auto 5.8 % (2.6-8.5); Neutrophils Absolute Auto 8.6 K/mm3 (1.3-6.7); Neutrophils Percent Auto 72.4 % (45.5-73.1); Platelet Count Result 327 k/mm3 (150-375); Red Blood Count 4.76 M/mm3 (4.2-5.4); Red Cell Distribution Width 15.4 % (11.5-14.5); White Blood Count 11.8 K/mm3 (4.5-10.0)
== END 2022-05-22 23:59 | disposition home or self-care (01) ==
LOC: ANHLAB 08:37
PROVIDERS: PCP Nurse Practitioner Family
DX: F29 Unspecified psychosis not due to a substance or known physiological condition (principal)
CPT/HCPCS: 36415; 85025

== ENCOUNTER 2022-08-06 07:19 | Outpatient (RCR) | payer OTHER, SELFPAY ==
[2022-06-05 07:38] LABS: Basophils Percent Auto 0.3 % (0.2-1.2); Eosinophils Absolute Auto 0.1 K/mm3 (0-0.3); Eosinophils Percent Auto 1.3 % (0-4.4); Hematocrit 39.4 % (37.0-47.0); Hemoglobin 12.2 g/dL (12.0-15.0); Immature Granulocyte Absolute 0.05 K/mm3 (0.00-0.031); Immature Granulocyte Percent A 0.5 % (0-0.5); Lymphocytes Absolute Auto 2.21 K/mm3 (0.9-3.2); Lymphocytes Percent Auto 20.2 % (18.3-44.2); Mean Corpuscular Hemoglobin 26.3 pg (26-34); Mean Corpuscular Volume 85.1 fl (80-100); Mean Platelet Volume 9.6 fl (7.4-10.4); Monocytes Absolute Auto 0.7 K/mm3 (0.1-0.6); Monocytes Percent Auto 6.1 % (2.6-8.5); Neutrophils Absolute Auto 7.8 K/mm3 (1.3-6.7); Neutrophils Percent Auto 71.6 % (45.5-73.1); Platelet Count Result 314 k/mm3 (150-375); Red Blood Count 4.63 M/mm3 (4.2-5.4); Red Cell Distribution Width 15.2 % (11.5-14.5); White Blood Count 10.9 K/mm3 (4.5-10.0)
[2022-07-04 09:24] LABS: Basophils Percent Auto 0.4 % (0.2-1.2); Eosinophils Absolute Auto 0.2 K/mm3 (0-0.3); Eosinophils Percent Auto 1.5 % (0-4.4); Hematocrit 36.7 % (37.0-47.0); Hemoglobin 11.6 g/dL (12.0-15.0); Immature Granulocyte Absolute 0.05 K/mm3 (0.00-0.031); Immature Granulocyte Percent A 0.5 % (0-0.5); Lymphocytes Absolute Auto 2.26 K/mm3 (0.9-3.2); Lymphocytes Percent Auto 21.5 % (18.3-44.2); Mean Corpuscular HGB Conc 31.6 g/dl (32-36); Mean Corpuscular Hemoglobin 26.3 pg (26-34); Mean Corpuscular Volume 83.2 fl (80-100); Mean Platelet Volume 10.1 fl (7.4-10.4); Monocytes Absolute Auto 0.6 K/mm3 (0.1-0.6); Monocytes Percent Auto 6.1 % (2.6-8.5); Neutrophils Absolute Auto 7.3 K/mm3 (1.3-6.7); Platelet Count Result 313 k/mm3 (150-375); Red Blood Count 4.41 M/mm3 (4.2-5.4); Red Cell Distribution Width 15.1 % (11.5-14.5); White Blood Count 10.5 K/mm3 (4.5-10.0)
[2022-08-06 07:50] LABS: Basophils Percent Auto 0.2 % (0.2-1.2); Eosinophils Absolute Auto 0.1 K/mm3 (0-0.3); Eosinophils Percent Auto 0.8 % (0-4.4); Hematocrit 37.4 % (37.0-47.0); Hemoglobin 11.8 g/dL (12.0-15.0); Immature Granulocyte Absolute 0.04 K/mm3 (0.00-0.031); Immature Granulocyte Percent A 0.3 % (0-0.5); Lymphocytes Absolute Auto 2.05 K/mm3 (0.9-3.2); Lymphocytes Percent Auto 16.1 % (18.3-44.2); Mean Corpuscular HGB Conc 31.6 g/dl (32-36); Mean Corpuscular Hemoglobin 25.6 pg (26-34); Mean Corpuscular Volume 81.1 fl (80-100); Mean Platelet Volume 10.4 fl (7.4-10.4); Monocytes Absolute Auto 0.7 K/mm3 (0.1-0.6); Monocytes Percent Auto 5.3 % (2.6-8.5); Neutrophils Absolute Auto 9.9 K/mm3 (1.3-6.7); Neutrophils Percent Auto 77.3 % (45.5-73.1); Platelet Count Result 301 k/mm3 (150-375); Red Blood Count 4.61 M/mm3 (4.2-5.4); Red Cell Distribution Width 16.1 % (11.5-14.5); White Blood Count 12.8 K/mm3 (4.5-10.0)
== END 2022-09-03 23:59 | disposition home or self-care (01) ==
LOC: ANHLAB 07:19
PROVIDERS: PCP Nurse Practitioner Family
DX: F29 Unspecified psychosis not due to a substance or known physiological condition (principal)
CPT/HCPCS: 36415; 85025

== ENCOUNTER 2022-08-14 13:53 | Emergency (ER) | payer OTHER, SELFPAY ==
[2022-08-14 14:04] VITALS: BP 133/76; PULSE 97; RESP 24; TEMP 36.3; O2SAT 100
--- NOTE | 2022-08-14 14:15 | ED.URI ---
HPI - URI/Sore Throat General Chief Complaint: Upper Respiratory Infection Stated Complaint: Congestion,Sore Throat,Cough Time Seen by Provider: 08/14/22 14:07 Source: patient Mode of arrival: ambulatory Limitations: no limitations History of Present Illness HPI Narrative: Patient presents today complaining of a 3 day history of cough, congestion, chest congestion, sore throat. Denies fever or shortness of breath. She has been taking Sudafed and Mucinex with mild relief. Denies any history of asthma or COPD. She does vape quite a bit. States she has an albuterol inhaler from a previous illness, but her mother instructed her not to take it. Related Data Home Medications Medication Instructions Recorded Confirmed metformin 500 mg tablet,extended 500 mg PO DAILY 08/10/20 08/14/22 release 24 hr buspirone 10 mg tablet 10 mg PO DAILY 12/20/21 08/14/22 clozapine 100 mg tablet 100 mg PO DAILY 12/20/21 08/14/22 lithium carbonate 450 mg 450 mg PO DAILY 12/20/21 08/14/22 tablet,extended release topiramate 100 mg tablet 100 mg PO DAILY 12/20/21 08/14/22 Allergies Allergy/AdvReac Type Severity Reaction Status Date / Time ziprasidone Allergy Unknown FACIAL TICS Verified 08/14/22 14:08 zolpidem AdvReac Unknown UNKNOWN Verified 08/14/22 14:08 REACTION BENZTROPINE MESYLATE Allergy Unknown MAKES HER Uncoded 08/14/22 14:08 LOOPY Review of Systems Review of Systems: CONSTITUTIONAL: Denies body aches, fever, chills, or sweats. EYES: Denies visual changes, redness, or discharge. ENT: Denies rhinorrhea, or otalgia.+ congestion, sore throat CARDIOVASCULAR: Denies chest pain, palpitations, or edema. RESPIRATORY: Denies dyspnea.+ cough, chest congestion GASTROINTESTINAL: Denies abdominal pain, nausea, vomiting, or diarrhea. GENITOURINARY: Denies dysuria or hematuria. SKIN: Denies rash, itching, or wounds. MUSCULOSKELETAL: Denies back pain, joint pain, or myalgia. NEUROLOGIC: Denies headache, numbness, tingling, or weakness. PSYCH: Denies depression or anxiety. [facility] Past Medical History Medical History ADHD (attention deficit hyperactivity disorder) Anxiety Depression History of diabetes mellitus Psychiatric disorder Surgical History Surgical History History of adenoidectomy History of tonsillectomy Hx of tympanostomy tubes Family History Family History Other Adopted Unknown family medical history Social History Social History Smoking status: Current every day smoker Tobacco type: e-cigarettes/vaping Second hand tobacco smoke exposure: Yes (grandmother) Additional smoking assessment comments: Shraddha reports smoking cigarettes intermittently prior to vaping-2020 Alcohol intake: former Alcohol use details: Had alcohol once when she was 19 Substance use: never Substance use type: marijuana Gender identity (if verbalized by the patient): Female Comments At time of signature, I have reviewed and agree with nursing past medical, surgical, social and family history unless otherwise noted. Please see nursing chart for further information. There is no relevant family history pertinent to the presenting complaint Exam Narrative: GENERAL: Mildly ill-appearing, well-nourished, and in no acute distress. HEAD: Normocephalic, atraumatic. EYES: EOMI. No redness or drainage. Conjunctivae normal. ENT: Mucous membranes pink and moist. Nares clear. No rhinorrhea. TMs normal bilaterally. Throat normal. Uvula midline. NECK: Normal AROM. Supple. No lymphadenopathy. CHEST: No respiratory distress. Inspiratory wheeze in the left upper lobe, otherwise clear. HEART: Regular rate and rhythm. No murmur appreciated. Normal peripheral pulses. EXTREMITIES: Normal
== END 2022-08-14 14:23 | disposition home or self-care (01) ==
PROVIDERS: Emergency Provider Nurse Practitioner; PCP Nurse Practitioner Family
DX: J40 Bronchitis, not specified as acute or chronic (principal); J06.9 Acute upper respiratory infection, unspecified; F17.290 Nicotine dependence, other tobacco product, uncomplicated; F41.9 Anxiety disorder, unspecified; F32.A Depression, unspecified; E11.9 Type 2 diabetes mellitus without complications; Z79.84 Long term (current) use of oral hypoglycemic drugs
CPT/HCPCS: 99213; G0463

== ENCOUNTER 2022-10-07 07:16 | Outpatient (RCR) | payer OTHER, SELFPAY ==
[2022-09-04 08:49] LABS: Hematocrit 36.5 % (37.0-47.0); Hemoglobin 11.3 g/dL (12.0-15.0); Mean Corpuscular Hemoglobin 25.7 pg (26-34); Mean Platelet Volume 9.7 fl (7.4-10.4); Platelet Count Result 303 k/mm3 (150-375); White Blood Count 8.7 K/mm3 (4.5-10.0)
[2022-09-09 20:15] LABS: ANCA Screen Negative (Negative)
[2022-10-07 08:07] LABS: Hemoglobin 11.6 g/dL (12.0-15.0); Mean Corpuscular HGB Conc 31.4 g/dl (32-36); Mean Corpuscular Hemoglobin 24.8 pg (26-34); Mean Corpuscular Volume 79.1 fl (80-100); Mean Platelet Volume 9.8 fl (7.4-10.4); Platelet Count Result 350 k/mm3 (150-375); Red Blood Count 4.68 M/mm3 (4.2-5.4); Red Cell Distribution Width 15.7 % (11.5-14.5); White Blood Count 11.5 K/mm3 (4.5-10.0)
[2022-10-07 16:19] LABS: Basophils Percent Auto 0.4 % (0.2-1.2); Eosinophils Absolute Auto 0.1 K/mm3 (0-0.3); Immature Granulocyte Absolute 0.05 K/mm3 (0.00-0.031); Immature Granulocyte Percent A 0.4 % (0-0.5); Lymphocytes Absolute Auto 2.28 K/mm3 (0.9-3.2); Lymphocytes Percent Auto 20.1 % (18.3-44.2); Monocytes Absolute Auto 0.6 K/mm3 (0.1-0.6); Monocytes Percent Auto 5.6 % (2.6-8.5); Neutrophils Absolute Auto 8.2 K/mm3 (1.3-6.7); Neutrophils Percent Auto 72.5 % (45.5-73.1)
[2022-10-11 22:02] LABS: ANCA Screen Negative (Negative)
== END 2022-12-03 23:59 | disposition home or self-care (01) ==
LOC: ANHLAB 07:16
PROVIDERS: PCP Nurse Practitioner Family
DX: F29 Unspecified psychosis not due to a substance or known physiological condition (principal)
CPT/HCPCS: 36415; 85025; 85027; 86036

== ENCOUNTER 2022-10-15 16:50 | Emergency (ER) | payer OTHER, SELFPAY ==
[2022-10-15 16:56] VITALS: BP 122/70; PULSE 90; RESP 16; TEMP 36.6; O2SAT 100
--- NOTE | 2022-10-15 17:05 | ED.GENADULT ---
HPI - General Adult General Chief complaint: Unspecified Stated complaint: unkn Time Seen by Provider: 10/15/22 17:05 Source: patient, RN notes reviewed and old records reviewed Mode of arrival: ambulatory Limitations: no limitations History of Present Illness HPI narrative: 22-year-old female with history of schizophrenia presents to the [facility] with concerns over . Patient states she has had nausea, heartburn and dry mouth for 3 weeks. Last menstrual period 10/11/22. States 3 weeks ago she started having sex, and symptoms of heartburn, dry mouth, nausea and headache developed. States she tried calling her primary care provider who told her it was too early to do a test. Has an appointment on the currently denies any abdominal pain or chest pain. Denies any shortness of breath. Denies any fevers. Has not taken anything for her symptoms Onset (ago): week(s) (3) Related Data Home Medications Medication Instructions Recorded Confirmed metformin 500 mg tablet,extended 500 mg PO DAILY 08/10/20 10/15/22 release 24 hr buspirone 10 mg tablet 10 mg PO DAILY 12/20/21 10/15/22 clozapine 100 mg tablet 100 mg PO DAILY 12/20/21 10/15/22 lithium carbonate 450 mg 450 mg PO DAILY 12/20/21 10/15/22 tablet,extended release topiramate 100 mg tablet 100 mg PO DAILY 12/20/21 10/15/22 Allergies Allergy/AdvReac Type Severity Reaction Status Date / Time ziprasidone Allergy Unknown FACIAL TICS Verified 08/14/22 14:08 zolpidem AdvReac Unknown UNKNOWN Verified 08/14/22 14:08 REACTION BENZTROPINE MESYLATE Allergy Unknown MAKES HER Uncoded 08/14/22 14:08 LOOPY Review of Systems Review of Systems: All systems reviewed & are unremarkable except as noted in HPI and below Constitutional: Constitutional: Reports no additional constitutional complaints Eyes: Eyes: Reports no additional eye complaints ENT: Reports system reviewed and no additional complaints, except as documented Cardiovascular: Cardiovascular: Reports no additional cardiovascular complaints, Denies chest pain and Denies dyspnea Respiratory: Respiratory: Reports no additional respiratory complaints, Denies chest congestion, Denies cough and Denies dyspnea Gastrointestinal: Gastrointestinal: Reports as per HPI, Denies abdominal pain, Reports heartburn, Denies diarrhea, Reports nausea and Denies vomiting Genitourinary: Genitourinary: Denies nocturia, Denies dysuria, Denies pelvic pain and Denies flank pain Musculoskeletal: Musculoskeletal: Reports no additional musculoskeletal complaints Integumentary/Breasts: Skin/Breast: Reports system reviewed and no additional complaints, except as docu Neurologic: Reports system reviewed and no additional complaints, except as documented Psychiatric: Psychiatric: Reports no additional psychiatric complaints Allergic/Immunologic: Allergic/Immunologic: Reports no additional allergic/immunologic complaints PMFSH Past Medical History Medical History ADHD (attention deficit hyperactivity disorder) Anxiety Depression History of diabetes mellitus Psychiatric disorder Surgical History Surgical History History of adenoidectomy History of tonsillectomy Hx of tympanostomy tubes Family History Family History Other Adopted Unknown family medical history Social History Social History Smoking status: Current every day smoker Tobacco type: e-cigarettes/vaping Second hand tobacco smoke exposure: Yes (grandmother) Additional smoking assessment comments: Shraddha reports smoking cigarettes intermittently prior to ing-2019 Alcohol intake: former Alcohol use details: Had alcohol once when she was 19 Substance use: never Substance use type: marijuana Living arr
== END 2022-10-15 17:52 | disposition home or self-care (01) ==
PROVIDERS: Emergency Provider Nurse Practitioner; PCP Nurse Practitioner Family
DX: Z32.02 Encounter for pregnancy test, result negative (principal); R11.0 Nausea; F17.290 Nicotine dependence, other tobacco product, uncomplicated; F41.9 Anxiety disorder, unspecified; F32.A Depression, unspecified; E11.9 Type 2 diabetes mellitus without complications
CPT/HCPCS: 81003; 81025; 99212; G0463

== ENCOUNTER 2022-10-15 18:27 | Emergency (ER) | payer OTHER, SELFPAY ==
[2022-10-15 18:29] VITALS: BP 138/68; PULSE 78; RESP 16; TEMP 36.6; O2SAT 100
[2022-10-15 18:46] LABS: Basophils Percent Auto 0.3 % (0.2-1.2); Eosinophils Absolute Auto 0.1 K/mm3 (0-0.3); Eosinophils Percent Auto 0.7 % (0-4.4); Hematocrit 36.4 % (37.0-47.0); Hemoglobin 11.3 g/dL (12.0-15.0); Immature Granulocyte Absolute 0.03 K/mm3 (0.00-0.031); Immature Granulocyte Percent A 0.3 % (0-0.5); Lymphocytes Absolute Auto 3.39 K/mm3 (0.9-3.2); Lymphocytes Percent Auto 34.1 % (18.3-44.2); Mean Corpuscular Hemoglobin 25.3 pg (26-34); Mean Corpuscular Volume 81.4 fl (80-100); Mean Platelet Volume 10.1 fl (7.4-10.4); Monocytes Absolute Auto 0.6 K/mm3 (0.1-0.6); Monocytes Percent Auto 6.4 % (2.6-8.5); Neutrophils Absolute Auto 5.8 K/mm3 (1.3-6.7); Neutrophils Percent Auto 58.2 % (45.5-73.1); Platelet Count Result 340 k/mm3 (150-375); Red Blood Count 4.47 M/mm3 (4.2-5.4); Red Cell Distribution Width 15.4 % (11.5-14.5); White Blood Count 9.9 K/mm3 (4.5-10.0)
[2022-10-15 18:56] LABS: Alanine Aminotransferase 24 U/L (6-35); Albumin Level 4.3 g/dL (3.5-5.1); Alkaline Phosphatase 95 U/L (38-126); Anion Gap 4 mmol/L (8-16); Aspartate Amino Transferase 26 U/L (14-36); Bilirubin,Total 0.4 mg/dL (0.2-1.3); Blood Urea Nitrogen 10 mg/dL (7-17); Calcium 8.9 mg/dL (8.4-10.2); Carbon Dioxide 27 mmol/L (22-30); Chloride 103 mmol/L (98-107); Estimated Glomerular Filt Rate > 60; Glucose 114 mg/dL (65-110); Lipase 147 U/L (23-300); Potassium 3.5 mmol/L (3.4-5.0); Sodium 134 mmol/L (137-145)
[2022-10-15 19:02] LABS: Appearance Urine Slightly Cloudy (Clear); Bilirubin Urine Negative (Negative); Blood Urine Negative (Negative); Color Urine Yellow (Yellow); Glucose Urine UA Negative (Negative); Ketones Urine Negative (Negative); Leukocyte Esterase Ur Negative LEU/UL (Negative); Nitrate Urine Negative (Negative); Protein Urine Negative (Negative); Specific Grav Ur 1.025 (1.001-1.035)
[2022-10-15 19:08] LABS: Bacteria Urine Trace /hpf; Mucus Urine Rare /lpf; RBC Urine 0-2 /hpf (0-2); Squamous Epithelial Cell Urine Occasional /hpf (Few); WBC Urine 0-3 /hpf
[2022-10-15 19:09] LABS: Add Urine Microscopic? YES
--- NOTE | 2022-10-15 21:05 | ED.ABDPAIN ---
HPI - Abdominal Pain General Chief Complaint: Abdominal Pain <RYAN Morales Last Filed: 10/15/22 22:12> Stated Complaint: abd pain <Kirstin Gómez PA-C - Last Filed: 10/15/22 22:12> Time Seen by Provider: 10/15/22 20:58 <RYAN Morales Last Filed: 10/15/22 22:12> History of Present Illness HPI narrative: Patient is a 22-year-old female with a history of schizophrenia here for evaluation of abdominal pain over the past month. Patient states that her pain is located in her lower abdomen and described as a burning sensation. She has also noted some abnormal vaginal discharge that is yellow and malodorous. She notes numerous episodes of vomiting over the past month and several episodes of diarrhea as well. She has been able to keep down some p.o. She initially presented to an urgent care facility today for test who referred her to the ED due to the abdominal pain. test was negative there. She is sexually active and does not use condoms or protection. No fevers, chills. <RYAN Morales Last Filed: 10/15/22 22:12> Related Data Home Medications: Home Medications Medication Instructions Recorded Confirmed metformin 500 mg tablet,extended 500 mg PO DAILY 08/10/20 10/15/22 release 24 hr buspirone 10 mg tablet 10 mg PO DAILY 12/20/21 10/15/22 clozapine 100 mg tablet 100 mg PO DAILY 12/20/21 10/15/22 lithium carbonate 450 mg 450 mg PO DAILY 12/20/21 10/15/22 tablet,extended release topiramate 100 mg tablet 100 mg PO DAILY 12/20/21 10/15/22 <RYAN Morales Last Filed: 10/15/22 22:12> Allergies/Adverse Reactions: Allergies Allergy/AdvReac Type Severity Reaction Status Date / Time ziprasidone Allergy Unknown FACIAL TICS Verified 08/14/22 14:08 zolpidem AdvReac Unknown UNKNOWN Verified 08/14/22 14:08 REACTION BENZTROPINE MESYLATE Allergy Unknown MAKES HER Uncoded 08/14/22 14:08 LOOPY <Kirstin Gómez PA-C - Last Filed: 10/15/22 22:12> Review of Systems Review of Systems: Gen: Denies fevers or chills Eyes: Denies eye pain or visual change ENT: Denies congestion Respiratory: Denies shortness of breath or cough CV: Denies chest pain or palpitations GI: Reports lower abdominal pain, diarrhea, nausea and vomiting. reports vaginal discharge. Denies burning, urgency, frequency or hematuria Musculoskeletal: Denies back pain or muscle pain Neuro: Denies numbness, tingling, weakness or focal weakness Skin: Denies rash Except as documented, all other systems reviewed and negative <Kirstin Gómez PA-C - Last Filed: 10/15/22 22:12> [facility] Past Medical History Medical History: Medical History ADHD (attention deficit hyperactivity disorder) Anxiety Depression History of diabetes mellitus Psychiatric disorder <Kirstin Gómez PA-C - Last Filed: 10/15/22 22:12> Surgical History Surgical History: Surgical History History of adenoidectomy History of tonsillectomy Hx of tympanostomy tubes <Kirstin Gómez PA-C - Last Filed: 10/15/22 22:12> Family History Family History: Family History Other Adopted Unknown family medical history <Kirstin Gómez PA-C - Last Filed: 10/15/22 22:12> Social History Social History: Social History Smoking status: Current every day smoker Tobacco type: e-cigarettes/vaping Second hand tobacco smoke exposure: Yes (grandmother) Additional smoking assessment comments: Shraddha reports smoking cigarettes intermittently prior to -2019 Alcohol intake: former Alcohol use details: Had alcohol once when she was 19 Substance use: never Substance use type: marijuana
[2022-10-15 21:17] VITALS: BP 115/80; PULSE 65; RESP 16; O2SAT 100
[2022-10-15] MEDS: ONDANSETRON HCL ODT 4 MG TABLET PO (21:17)
[2022-10-15] MEDS: MAG HYDROX/AL HYDROX/SIMETH 30 ML UDC PO (21:17)
[2022-10-15 22:30] VITALS: BP 94/64; PULSE 58; RESP 20; O2SAT 100
== END 2022-10-15 22:33 | disposition home or self-care (01) ==
PROVIDERS: Emergency Medicine; Emergency Provider Physician Assistant; PCP Nurse Practitioner Family
DX: N89.8 Other specified noninflammatory disorders of vagina (principal); E11.9 Type 2 diabetes mellitus without complications; F20.9 Schizophrenia, unspecified; F41.9 Anxiety disorder, unspecified; F32.A Depression, unspecified; F90.9 Attention-deficit hyperactivity disorder, unspecified type; F17.290 Nicotine dependence, other tobacco product, uncomplicated; Z79.84 Long term (current) use of oral hypoglycemic drugs
CPT/HCPCS: 36415; 80053; 81001; 81025; 83690; 85025; 87070; 87491; 87591; 87808; 99284; A9270

== ENCOUNTER 2022-12-18 20:22 | Emergency (ER) | payer OTHER, SELFPAY ==
[2022-12-18 20:27] VITALS: BP 139/69; PULSE 89; RESP 16; TEMP 36.8; O2SAT 100
== END 2022-12-18 21:10 | disposition left against medical advice (07) ==
PROVIDERS: PCP Nurse Practitioner Family
DX: O21.9 Vomiting of pregnancy, unspecified (principal)
CPT/HCPCS: 99199